=== PATIENT | male | born 1975 | race African-American/Black ===

== ENCOUNTER 2017-09-29 18:02 | Emergency (ER) | payer SELFPAY ==
[~2017-09-29] VITALS: Ht 182.9 cm; Wt 90.0 kg
[2017-09-29 18:04] VITALS: BP 111/60; PULSE 82; RESP 16; TEMP 98.5; O2SAT 97
[2017-09-29 18:05] VITALS: BP 117/74; PULSE 80; RESP 20; TEMP 98.3; O2SAT 99
[2017-09-29] MEDS ORDERED: BUPR150XL PO (19:19)
--- NOTE | 2017-09-29 20:28 | PD ---
HPI Chief Complaint: Psychiatric Symptoms Time Seen by Provider: 19:53 Travel History International Travel<30 days: No Contact w/Intl Traveler<30days: No Traveled to known affect area: No History of Present Illness HPI 42-year-old male that presents to the ED for evaluation of psychiatric eval. patient came here voluntarily for this. Apparently patient lives sober home and apparently has been using cocaine and was kicked out of his sober home. Per patient has been feeling depressed because of this. He states that he is takes medications for this but he still feels depressed. He denies any medical issues at this time. For the most part he seems to get irritable with any questioning. No chest pain or shortness of breath. No urinary or bowel movement issues. States that symptoms have been worsening since having nowhere to go. Symptoms appear to be worsening for the past couple of days. Nothing seems to make it better. PFSH Past Medical History Bipolar Disorder: Yes Anxiety: Yes Depression: Yes Cardiovascular Problems: Yes Insomnia: Yes Tetanus Vaccination: Unknown Past Surgical History Surgical History: No Previous Surgery Other Surgery: Yes (R femur R Bicep) Social History Alcohol Use: No Tobacco Use: Yes (4 cigarettes/day) Substance Use: Yes (crack/cocaine-last use: yesterday) Allergies-Medications (Allergen,Severity, Reaction): Coded Allergies: No Known Drug Allergies (Verified Allergy, Unknown, 09/01/17) Reported Meds & Prescriptions Reported Meds & Active Scripts Active Reported Wellbutrin Xl 24 HR (Bupropion HCl) 150 Mg Tab Unknown Dose PO DAILY Review of Systems Except as stated in HPI: all other systems reviewed are Neg Physical Exam Narrative GENERAL: SKIN: Warm and dry. HEAD: Atraumatic. Normocephalic. EYES: Pupils equal and round. No scleral icterus. No injection or drainage. ENT: No nasal bleeding or discharge. Mucous membranes pink and moist. Tongue is midline. No uvula deviation. NECK: Trachea midline. No JVD. CARDIOVASCULAR: Regular rate and rhythm. No murmurs, S3, S4. RESPIRATORY: No accessory muscle use. Clear to auscultation. Breath sounds equal bilaterally. GASTROINTESTINAL: Abdomen soft, non-tender, nondistended. Hepatic and splenic margins not palpable. MUSCULOSKELETAL: Extremities without clubbing, cyanosis, or edema. No obvious deformities. Full range of motion of the upper and lower extremity bilaterally. 2+ pulses bilaterally. NEUROLOGICAL: Awake and alert. No obvious cranial nerve deficits. Motor grossly within normal limits. Five out of 5 muscle strength in the arms and legs. Normal speech. PSYCHIATRIC: Appropriate mood and affect; insight and judgment normal. Data Data Last Documented VS Vital Signs Date Time Temp Pulse Resp B/P (MAP) Pulse Ox O2 Delivery O2 Flow Rate FiO2 09/29/17 18:05 98.3 80 20 117/74 (88) 99 Room Air Orders Orders Complete Blood Count With Diff (09/29/17 19:46) Comprehensive Metabolic Panel (09/29/17 19:46) Thyroid Stimulating Hormone (09/29/17 19:46) Psych Screen (09/29/17 19:46) Drug Screen, Random Urine (09/29/17 19:46) Labs Laboratory Tests Test 09/29/17 18:20 09/29/17 19:20 MDM Medical Decision Making Medical Screen Exam Complete: Yes Emergency Medical Condition: Yes Medical Record Reviewed: Yes Differential Diagnosis Depression versus suicidal ideation versus anxiety versus adjustment disorder versus mood disorder versus bipolar disorder versus schizophrenia versus paranoid disorder versus psychosis versus substance abuse versus alcohol abuse versus alcohol induced psychosis versus homicidality addition versus cutting versus personality disorder Narrative Course 42-year-old male the presents to the ED for evaluation of psychiatric illness. Patient was properly examined and was found to have signs and symptoms consistent with psychiatric in nature but possibly malingering. Labs were drawn. Patient was medically clear. Okay to be seen by psych. Mental health screening was discussed with the patient. Diagnosis Primary Impression: Mood disorder Adolfo Goodson Sep 29, 2017 20:28
[2017-09-29 20:31] LABS: AUTOMATED NEUTROPHIL # 4.1 TH/MM3 (1.8-7.7); BASOPHIL % 0.3 % (0.0-2.0); EOSINOPHIL # 0.3 TH/MM3 (0-0.4); EOSINOPHIL % 3.4 % (0.0-4.0); HEMATOCRIT 35.5 % (39.0-51.0); HEMOGLOBIN 11.5 GM/DL (13.0-17.0); LYMPHOCYTE # 2.6 TH/MM3 (1.0-4.8); MEAN CELL VOLUME 83.1 FL (80.0-100.0); MEAN CORPUSCULAR HEMOGLOBIN 27.1 PG (27.0-34.0); MEAN CORPUSCULAR HGB CONC 32.6 % (32.0-36.0); MEAN PLATELET VOLUME 8.9 FL (7.0-11.0); MONO % 8.5 % (0.0-8.0); MONOCYTE # 0.7 TH/MM3 (0-0.9); NEUT % 53.8 % (16.0-70.0); PLATELET COUNT 192 TH/MM3 (150-450); RED BLOOD COUNT 4.27 MIL/MM3 (4.50-5.90); WHITE BLOOD COUNT 7.7 TH/MM3 (4.0-11.0)
[2017-09-29 20:51] LABS: ALBUMIN 3.8 GM/DL (3.4-5.0); AST (GOT) 42 U/L (15-37); BICARBONATE 25.3 MEQ/L (21.0-32.0); BLOOD UREA NITROGEN 16 MG/DL (7-18); CHLORIDE 104 MEQ/L (98-107); CREATININE 1.24 MG/DL (0.60-1.30); GLOMERULAR FILTRATION RATE 78 ML/MIN (>89); GLUCOSE,RANDOM 98 MG/DL (74-106); SODIUM (NA) 139 MEQ/L (136-145)
[2017-09-29 20:53] LABS: ALT (GPT) 44 U/L (12-78)
[2017-09-29 21:02] LABS: ALKALINE PHOSPHATASE 71 U/L (45-117); TOTAL BILIRUBIN ADULT 0.4 MG/DL (0.2-1.0); TOTAL PROTEIN 7.7 GM/DL (6.4-8.2)
[2017-09-30 03:08] VITALS: BP 116/57; PULSE 72; RESP 18; TEMP 98.1; O2SAT 100
[2017-09-30 06:47] VITALS: BP 98/59; PULSE 65; RESP 20; TEMP 97.8; O2SAT 100
--- NOTE | 2017-09-30 09:35 | PD ---
History of Present Illness Chief Complaint: Psychiatric Symptoms Time Seen by Provider: 09:39 Travel History International Travel<30 Days: No Contact w/Intl Traveler<30days: No Known affected area: No Legal Status Legal Status: Voluntary History of Present Illness: Patient is a 42-year-old -[place] male who presents to the emergency department because he is feeling depressed. Patient was living in a sober house by the name of [facility]. He states that he is currently under treatment for depression at [facility] and is taking Wellbutrin and Remeron. He states that the Wellbutrin is the cause of his urine tox screen being positive. Patient endorses that the [facility] asked him to leave. He denies doing any illicit drugs. UDS is positive for cocaine and cannabis. Denies SI/HI. Chart review and discuss with nurse. Patient is in hospital gown in room J- 109. Alert and oriented 4. Patient is irritable and resistant to answering questions. States that he is depressed and needs a medication adjustment. Fund of knowledge is good motor activity normal. Speech normal for tone , rate and volume. Mood is depressed with flat and blunted affect. Concentration is mildly impaired. Eye contact is good. Patient denies suicidal ideations at this time. He is he states he is angry and upset because he was asked to leave the sober living home and he is blaming it on his medications. Patient is at low risk for self-harm or harming others. Patient states that he has a good support system through [facility] for the care of his depression. Patient was referred to the outpatient clinic at [facility] for further evaluation and medication management. Dx: Mood disorder, substance induced; Cocaine and Marijuana Abuse PFSH Past Medical History Bipolar Disorder: Yes Anxiety: Yes Depression: Yes Cardiovascular Problems: Yes Insomnia: Yes Tetanus Vaccination: Unknown Past Surgical History Surgical History: No Previous Surgery Other Surgery: Yes (R femur R Bicep) Psychiatric History Psychiatric History Patient is followed by [facility] outpatient clinic for his depression. Hx Psychiatric Treatment: Denies History of Inpatient Treatment: No Social History Hx Alcohol Use: No Hx Tobacco Use: Yes (4 cigarettes/day) Hx Substance Use: Yes (crack/cocaine-last use: yesterday) Substance Use Type: Marijuana Hx of Substance Use Treatment: No Allergies-Medications (Allergen,Severity, Reaction): Coded Allergies: No Known Drug Allergies (Verified Allergy, Unknown, 09/01/17) Reported Meds & Prescriptions Reported Meds & Active Scripts Active Reported Wellbutrin Xl 24 HR (Bupropion HCl) 150 Mg Tab Unknown Dose PO DAILY Mental Status Examination Appearance: Appropriate Consciousness: Alert Orientation: x4 Motor Activity: Normal gait Speech: Unremarkable Language: Adequate Fund of Knowledge: Adequate Attention and Concentration: Adequate Memory: Unremarkable Mood: Appropriate Affect: Appropriate Thought Process & Associations: Intact Thought Content: Appropriate Hallucination Type: None Delusion Type: None Suicidal Ideation: No Suicidal Plan: No Suicidal Intention: No Homicidal Ideation: No Homicidal Plan: No Homicidal Intention: No Insight: Adequate Judgment: Adequate MDM Medical Decision Making Medical Record Reviewed: Yes Assessment/Plan Patient is a 42-year-old -[place]aur[place] male who presents emergency room for depression. He reports that he was asked to to leave his place of residence at the sober living home called [facility]. He states that he had a good job and a good living situation and believes that he was asked to leave because of a positive UDS. He is blaming the positive UDS on his depression medication Wellbutrin. Patient is at low risk for self-harm or injuring others. He is familiar with [facility] and will follow-up for medication management. Patient will be discharged at this time so that he can seek outpatient treatment. Orders Orders Complete Blood Count With Diff (09/29/17 19:46) Comprehensive Metabolic Panel (09/29/17 19:46) Thyroid Stimulating Hormone (09/29/17 19:46) Psych Screen (09/29/17 19:46) Drug Screen, Random Urine (09/29/17 19:46) Diet Regular Basic (09/30/17 Breakfast) Results Vital Signs Date Time Temp Pulse Resp B/P (MAP) Pulse Ox O2 Delivery O2 Flow Rate FiO2 09/30/17 06:47 97.8 65 20 98/59 (72) 100 Room Air 09/30/17 03:08 98.1 72 18 116/57 (76) 100 Room Air 09/29/17 18:05 98.3 80 20 117/74 (88) 99 Room Air 09/29/17 18:04 98.5 82 16 111/60 (77) 97 Laboratory Tests Test 09/29/17 18:20 09/29/17 19:20 Urine Opiates Screen NEG Urine Barbiturates Screen NEG Urine Amphetamines Screen NEG Urine Benzodiazepines Screen NEG Urine Cocaine Screen POS Urine Cannabinoids Screen POS White Blood Count 7.7 Red Blood Count 4.27 Hemoglobin 11.5 Hematocrit 35.5 Mean Corpuscular Volume 83.1 Mean Corpuscular Hemoglobin 27.1 Mean Corpuscular Hemoglobin Concent 32.6 Red Cell Distribution Width 15.0 Platelet Count 192 Mean Platelet Volume 8.9 Neutrophils (%) (Auto) 53.8 Lymphocytes (%) (Auto) 34.0 Monocytes (%) (Auto) 8.5 Eosinophils (%) (Auto) 3.4 Basophils (%) (Auto) 0.3 Neutrophils # (Auto) 4.1 Lymphocytes # (Auto) 2.6 Monocytes # (Auto) 0.7 Eosinophils # (Auto) 0.3 Basophils # (Auto) 0.0 CBC Comment DIFF FINAL Differential Comment Blood Urea Nitrogen 16 Creatinine 1.24 Random Glucose 98 Total Protein 7.7 Albumin 3.8 Calcium Level 9.0 Alkaline Phosphatase 71 Aspartate Amino Transf (AST/SGOT) 42 Alanine Aminotransferase (ALT/SGPT) 44 Total Bilirubin 0.4 Sodium Level 139 Potassium Level 3.2 Chloride Level 104 Carbon Dioxide Level 25.3 Anion Gap 10 Estimat Glomerular Filtration Rate 78 Thyroid Stimulating Hormone 3rd Gen 0.509 Diagnosis Primary Impression: Mood disorder Additional Impressions: Cannabis abuse Cocaine abuse Disposition: 01 DISCHARGE HOME Condition: Stable Problem Qualifiers Alice Zarate Sep 30, 2017 09:35
--- NOTE | 2017-09-30 09:50 | PD ---
Physical Exam Time Seen by Provider: 09:48 Narrative CHAD Cadet has evaluated the patient, lifted the Yang act and cleared the patient for discharge. Data Data Last Documented VS Vital Signs Date Time Temp Pulse Resp B/P (MAP) Pulse Ox O2 Delivery O2 Flow Rate FiO2 09/30/17 09:44 09/30/17 06:47 97.8 65 20 100 Room Air Orders Orders Complete Blood Count With Diff (09/29/17 19:46) Comprehensive Metabolic Panel (09/29/17 19:46) Thyroid Stimulating Hormone (09/29/17 19:46) Psych Screen (09/29/17 19:46) Drug Screen, Random Urine (09/29/17 19:46) Diet Regular Basic (09/30/17 Breakfast) Labs Laboratory Tests Test 09/29/17 18:20 09/29/17 19:20 Urine Opiates Screen NEG Urine Barbiturates Screen NEG Urine Amphetamines Screen NEG Urine Benzodiazepines Screen NEG Urine Cocaine Screen POS Urine Cannabinoids Screen POS White Blood Count 7.7 TH/MM3 Red Blood Count 4.27 MIL/MM3 Hemoglobin 11.5 GM/DL Hematocrit 35.5 % Mean Corpuscular Volume 83.1 FL Mean Corpuscular Hemoglobin 27.1 PG Mean Corpuscular Hemoglobin Concent 32.6 % Red Cell Distribution Width 15.0 % Platelet Count 192 TH/MM3 Mean Platelet Volume 8.9 FL Neutrophils (%) (Auto) 53.8 % Lymphocytes (%) (Auto) 34.0 % Monocytes (%) (Auto) 8.5 % Eosinophils (%) (Auto) 3.4 % Basophils (%) (Auto) 0.3 % Neutrophils # (Auto) 4.1 TH/MM3 Lymphocytes # (Auto) 2.6 TH/MM3 Monocytes # (Auto) 0.7 TH/MM3 Eosinophils # (Auto) 0.3 TH/MM3 Basophils # (Auto) 0.0 TH/MM3 CBC Comment DIFF FINAL Differential Comment Blood Urea Nitrogen 16 MG/DL Creatinine 1.24 MG/DL Random Glucose 98 MG/DL Total Protein 7.7 GM/DL Albumin 3.8 GM/DL Calcium Level 9.0 MG/DL Alkaline Phosphatase 71 U/L Aspartate Amino Transf (AST/SGOT) 42 U/L Alanine Aminotransferase (ALT/SGPT) 44 U/L Total Bilirubin 0.4 MG/DL Sodium Level 139 MEQ/L Potassium Level 3.2 MEQ/L Chloride Level 104 MEQ/L Carbon Dioxide Level 25.3 MEQ/L Anion Gap 10 MEQ/L Estimat Glomerular Filtration Rate 78 ML/MIN Thyroid Stimulating Hormone 3rd Gen 0.509 uIU/ML MDM Supervised Visit with VICKI: No Narrative Course CHAD Cadet has evaluated the patient, lifted the Yang act and cleared the patient for discharge. Patient contracts safety. Denies suicidal or homicidal ideations. Patient will be provided community resource packet to [facility] for follow-up. Has friends and family for support. Patient was medically cleared by alternate provider prior to psych screening. Patient has been evaluated by psychiatry and and is now cleared for discharge. Diagnosis Primary Impression: Mood disorder Additional Impressions: Cannabis abuse Cocaine abuse Referrals: [facility] (Out patient) [facility] Primary Care Physician Psychiatrist [facility] Patient Instructions: Cannabis Abuse (ED), Cocaine Abuse (ED), General Instructions, Mood Disorders (ED), Polysubstance Abuse (ED) Additional Instruction: Contract safety to your self and others Stop using drugs Follow-up in the community for community support, such as with Narcotics Anonymous Follow-up with psychiatry Follow-up with primary care provider Follow-up with [facility] Return to the emergency department immediately with worsening of symptoms Med/Other Pt SpecificInfo: No Change to Meds, No Meds Exist/No RX given Disposition: 01 DISCHARGE HOME Condition: Stable Jennifer Simmons Sep 30, 2017 09:49
== END 2017-09-30 09:56 | disposition home or self-care (01) ==
LOC: NEPJ 18:02
DX: F31.9 Bipolar disorder, unspecified (principal); F12.10 Cannabis abuse, uncomplicated; F14.10 Cocaine abuse, uncomplicated; F17.210 Nicotine dependence, cigarettes, uncomplicated; Z79.899 Other long term (current) drug therapy
CPT/HCPCS: 80053; 80307; 84443; 85025; 99283

== ENCOUNTER 2017-09-30 13:20 | Emergency (ER) | payer SELFPAY ==
[~2017-09-30] VITALS: Ht 177.8 cm; Wt 70.0 kg
[~2017-09-30 13:20] MED LIST: BUPR150XL PO
[2017-09-30 13:34] VITALS: BP 118/97; PULSE 66; RESP 16; TEMP 98.2; O2SAT 99
--- NOTE | 2017-09-30 14:31 | PD ---
HPI . Suicidal ideation Chief Complaint: Suicide Ideation/Attempt Time Seen by Provider: 13:44 Travel History International Travel<30 days: No Contact w/Intl Traveler<30days: No Traveled to known affect area: No History of Present Illness HPI This patient presents to us with the chief complaint of suicidal ideation. He was brought in by the police but not Yang Acted. The patient was actually here yesterday as a Yang Act. He was just discharged this morning at about 930. His diagnosis is substance abuse and substance induced mood disorder. He was discharged with instructions to go to [facility]. He was reportedly given a bus pass to go to [facility]. The triage nurse reports that the patient sat out in the lobby talking angrily and loudly about the poor care that he had received here. He then left on foot and presented just a short time later with the police. History Social History Alcohol Use: No Tobacco Use: Yes (4 cigarettes/day) Allergies-Medications (Allergen,Severity, Reaction): Coded Allergies: No Known Drug Allergies (Verified Allergy, Unknown, 09/01/17) Reported Meds & Prescriptions Reported Meds & Active Scripts Active Reported Wellbutrin Xl 24 HR (Bupropion HCl) 150 Mg Tab Unknown Dose PO DAILY Review of Systems Except as stated in HPI: all other systems reviewed are Neg Psychiatric: Positive: Suicidal Ideations, Substance Abuse Physical Exam Narrative GENERAL: Angry and uncooperative. SKIN: Warm and dry. Normal color and turgor. HEAD: Normocephalic/atraumatic. EYES: Pupils are equal. Extraocular movements are intact. NECK: Normal range of motion. Supple. CARDIOVASCULAR: Regular rate and rhythm. RESPIRATORY: Nonlabored respirations. Normal sats. MUSCULOSKELETAL: Atraumatic. Normal muscle tone. NEUROLOGICAL: A and O 3. Nonfocal. PSYCHIATRIC: Angry and uncooperative. Data Data Last Documented VS Vital Signs Date Time Temp Pulse Resp B/P (MAP) Pulse Ox O2 Delivery O2 Flow Rate FiO2 09/30/17 13:34 98.2 66 16 118/97 (104) 99 MDM Medical Screen Exam Complete: Yes Emergency Medical Condition: No Narrative Course This patient was just seen here between yesterday and today for suicidal ideation. He was diagnosed with substance-induced mood disorder. He was discharged. He loitered in the lobby for quite some time reportedly talking loudly and angrily the whole time that he was there. He eventually left on foot and was brought back here by the police with the chief complaint of continued suicidal ideation. He is felt to be malingering. A medical screening exam was performed: At the time of evaluation the presenting medical condition was determined not to be of an emergent nature. The patient was given the option of receiving additional care, but declined. Patient was given options for additional community resources from which to obtain care. The Patient Has Been advised to seek medical attention for their presenting complaint. The patient has been advised to return to the ER at any time if an emergent condition develops. Plan He was [place] [facility] [place] Primary Impression: Encounter for medical screening examination Additional Impression: Malingering Condition: Stable Celeste Bennett MD Sep 30, 2017 14:31
== END 2017-09-30 14:27 | disposition left against medical advice (07) ==
LOC: NEPD 13:20
DX: R45.851 Suicidal ideations (principal); Z76.5 Malingerer [conscious simulation]; F17.210 Nicotine dependence, cigarettes, uncomplicated
CPT/HCPCS: 99281

== ENCOUNTER 2017-10-05 15:47 | Emergency (ER) | payer OTHER ==
[~2017-10-05] VITALS: Ht 182.9 cm; Wt 89.0 kg
[2017-10-05 15:56] VITALS: BP 116/69; PULSE 75; RESP 16; TEMP 98.4; O2SAT 100
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
[2017-10-05] MEDS ORDERED: IBUPROFEN 600 MG TAB PO ONE (16:15)
[2017-10-05 16:23] LABS: AUTOMATED NEUTROPHIL # 5.2 TH/MM3 (1.8-7.7); BASOPHIL # 0.1 TH/MM3 (0-0.2); BASOPHIL % 0.7 % (0.0-2.0); EOSINOPHIL # 0.1 TH/MM3 (0-0.4); EOSINOPHIL % 1.3 % (0.0-4.0); HEMATOCRIT 38.6 % (39.0-51.0); HEMOGLOBIN 12.8 GM/DL (13.0-17.0); LYMPH % 23.8 % (9.0-44.0); LYMPHOCYTE # 1.9 TH/MM3 (1.0-4.8); MEAN CELL VOLUME 82.1 FL (80.0-100.0); MEAN CORPUSCULAR HEMOGLOBIN 27.2 PG (27.0-34.0); MEAN CORPUSCULAR HGB CONC 33.1 % (32.0-36.0); MEAN PLATELET VOLUME 8.5 FL (7.0-11.0); MONO % 8.6 % (0.0-8.0); MONOCYTE # 0.7 TH/MM3 (0-0.9); NEUT % 65.6 % (16.0-70.0); PLATELET COUNT 218 TH/MM3 (150-450); RED CELL DISTRIBUTION WIDTH 15.6 % (11.6-17.2); WHITE BLOOD COUNT 7.9 TH/MM3 (4.0-11.0)
[2017-10-05 16:39] LABS: ALT (GPT) 37 U/L (12-78); AST (GOT) 41 U/L (15-37); BICARBONATE 25.7 MEQ/L (21.0-32.0); BLOOD UREA NITROGEN 20 MG/DL (7-18); CALCIUM 8.9 MG/DL (8.5-10.1); CHLORIDE 105 MEQ/L (98-107); CREATININE 1.27 MG/DL (0.60-1.30); GLOMERULAR FILTRATION RATE 76 ML/MIN (>89); GLUCOSE,RANDOM 81 MG/DL (74-106); SODIUM (NA) 139 MEQ/L (136-145)
[2017-10-05 16:50] LABS: ALKALINE PHOSPHATASE 74 U/L (45-117); TOTAL BILIRUBIN ADULT 0.4 MG/DL (0.2-1.0); TOTAL PROTEIN 8.5 GM/DL (6.4-8.2)
[2017-10-05 18:23] VITALS: BP 114/66; PULSE 80; RESP 16; TEMP 98.7; O2SAT 99
[2017-10-05 22:05] VITALS: BP 101/56; PULSE 97; RESP 18; TEMP 98.3; O2SAT 97
[2017-10-06 02:25] VITALS: BP 120/57; PULSE 55; RESP 18; TEMP 98.2; O2SAT 99
== END 2017-10-06 03:01 ==
LOC: NEDAMB 15:47 → NEPJ 10-06 03:01
DX: R45.851 Suicidal ideations (principal); F17.210 Nicotine dependence, cigarettes, uncomplicated; F31.9 Bipolar disorder, unspecified
CPT/HCPCS: 80053; 80307; 84443; 85025; 99285